=== PATIENT | female | born 1980 | race Hispanic/Latino ===

== ENCOUNTER 2016-09-26 08:06 | Observation (INO) | payer OTHER ==
[~2016-09-26] VITALS: Ht 167.6 cm; Wt 95.3 kg
[~2016-09-26 08:06] MED LIST: LEVSIN/SL0.125 MG SL; MIRENA1 EACH; TRAMADOL50 MG PO; ZOFRAN4 M1 SL
--- NOTE | 2016-09-26 08:13 | ED GI/GU/ABDOMINAL COMPLAINT ---
History of Present Illness General Chief Complaint: Abdominal Pain/Flank Pain Stated Complaint: LOWER ABD PAIN SINCE LAST PM Source: patient, old records Exam Limitations: no limitations Vital Signs & Intake/Output Vital Signs & Intake/Output Vital Signs Date Time Temp Pulse Resp B/P Pulse O2 O2 Flow FiO2 Ox Delivery Rate 09/27 0110 97.4 61 18 142/84 96 Room Air 09/26 1956 97.0 68 17 138/90 97 Room Air 09/26 1545 98.3 68 18 112/84 100 09/26 1345 97.8 68 18 132/80 100 Room Air 09/26 1301 97.0 66 15 126/86 100 Room Air Room Air 09/26 1050 96.9 64 16 149/82 100 Room Air 09/26 0902 124/86 09/26 0830 Room Air Room Air 09/26 0808 97.2 83 20 152/100 98 Room Air ED Intake and Output 09/27 0000 09/26 1200 Intake Total 200 1000 Output Total 600 Balance -400 1000 Intake, IV 200 1000 Output, Urine 600 Patient 210 lb 210 lb Weight Allergies Coded Allergies: NO KNOWN ALLERGIES (06/10/15) Reconcile Medications Levonorgestrel (Mirena) 20 MCG/24 HOUR (5 YEARS) IUD BC (Reported) Triage Note: PT TO ED C/O LOWER ABD PAIN SINCE YESTERDAY. PAIN RADIATES TO BACK. DENIES S/S. THIS AM C/O NAUSEA. DENIES V/D. DESCRIBES PAIN CONSTANT BURN. Triage Nurses Notes Reviewed? yes LMP (ages 10-50): unknown ? N Is pt currently ? No Onset: Abrupt Duration: day(s): (2), constant, waxing and waning Timing: recent history Quality/Severity: aching, cramping Severity Numbers: 6 Location: generalized abdomen Radiation: RLQ, RUQ Activities at Onset: none Prior Abdominal Problems: none No Modifying Factors: none Associated Symptoms: NAUSEA, URINARY FREQ HPI: This is a 36-year-old female with history of cholecystectomy presents to emergency room complaining of generalized abdominal pain intermittent in nature sudden in onset was last night. The patient states that she initially attributed the pain to holding her bladder all day however states she's had urinary frequency since, and nausea this morning. No vomiting no change in her bowel movements. She states the pain is described as cramping in nature radiating into her lower back. She denies any fever chills chest pain. No sick contacts or recent travel. Patient is unsure of her last menstrual cycle, and has a mirena in place. Patient's last bowel movement was this morning (MARCELO KAY) Past History Travel History Traveled to [place] past 21 day No Medical History Any Pertinent Medical History? 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 No (MARCELO KAY) Review of Systems Review of Systems Constitutional: Reports: see HPI. All Other Systems: Reviewed and Negative Comments Review of systems: See HPI, All other systems negative. Constitutional, no chills no fever, no malaise HEENT: No visual changes no sore throat no congestion Cardiovascular: No chest pain , no palpitation Skin, no rashes, no change in skin Respiratory: No dyspnea no cough no sputum GI: nausea no vomiting, no diarrhea, no bloating/constipation : No dysuria No hematuria, frequency, no discharge Muscle skeletal: No joint pain, no joint swelling, no back pain, no neck pain, Neurologic: No numbness no headache Psych: No stress Heme/endocrine: No bruising no bleeding Immunology: No lymphadenopathy, (MARCELO KAY) Physical Exam Physical Exam General Appearance: well developed/nourished, no apparent distress, alert, awake Gastrointestinal: soft, tenderness Comments: Well-developed well-nourished person in no acute distress HEENT: Normal EENT exam; PERRL, EOMI HEAD is atraumatic. moist mucous membranes. Neck: Supple, normal range of motion Back: Nontender, no CVA tenderness. Full range of motion Cardiovascular: Regular rate and rhythms no murmurs rubs Respiratory: Chest nontender.There were no bony deformities, no asymmetry. No respiratory distress. Patient speaking in full complete sentences. Breath sounds clear to auscultation bilaterally: NO W/R/R Abdomen: Soft, tender to palpation over the right lower quadrant nondistended, no appreciable organomegaly. Normal bowel sounds. No rebound/guarding, Extremity: No edema, full range of motion of extremities, Neuro: Alert oriented x3, motor sensory normal. There were no obvious focal neurologic abnormalities. Skin: No appreciable rash on exposed skin, skin is warm and dry. Psych: Mood and affect is normal, memory and judgment is normal. Core Measures ACS in differential dx? No Severe Sepsis Present: No Septic Shock Present: No (CAROL PATRICIO,MARCELO) Progress Differential Diagnosis: appendicitis, bowel obstruction, colon cancer, cholecystitis, diverticulitis, ectopic , gastritis, hepatitis, hernia, ischemic bowel, inflamm bowel dis, intrauterine , kidney stone, ovarian cyst, ovarian torsion, pancreatitis, PID/cervicitis, peptic ulcer, PUD/GERD, perforated viscous, SBO, threatened AB, UTI/pyelo Plan of Care: Orders Procedure Date/time Status Nothing by Mouth 09/26 L Complete Regular Diet 09/26 D Active TRANSFER ORDERS 09/26 1759 Complete PATHOLOGY SPECIMEN 09/26 1749 Complete Vital Signs 09/26 1604 Active Teach/Educate 09/26 1604 Complete Nutritional Intake, Monitor 09/26 1604 Complete Isolation 09/26 1604 Complete Intake & Output 09/26 1604 Active Patient Care Conference 09/26 1604 Complete Activity/Ambulation 09/26 1604 Active Pathway - chart 09/26 1041 Active Patient Data 09/26 1041 Active Code Status 09/26 1041 Active Saline Lock 09/26 0820 Active URINE 09/26 0820 Complete URINALYSIS 09/26 0820 Complete LIPASE 09/26 0820 Complete COMPREHENSIVE METABOLIC PANEL 09/26 0820 Complete CBC WITHOUT DIFFERENTIAL 09/26 0820 Complete AMYLASE 09/[address] in observation 09/26 UNK Active VTE Mechanical Prophylaxis 09/26 UNK Complete VTE Mechanical Prophylaxis 09/26 UNK Active Vital Signs 09/26 UNK Complete Vital Signs 09/26 UNK Active Intake & Output 09/26 UNK Complete Intake & Output 09/26 UNK Active Activity/Ambulation 09/26 UNK Complete Activity/Ambulation 09/26 UNK Active Current Medications Sig/Belia Start time Last Medication Dose Stop Time Status Admin Heparin Sodium 5,000 UNIT Q8 09/26 2200 AC (Porcine) Acetaminophen 650 MG Q6PRN PRN 09/26 1930 AC (Tylenol) Morphine Sulfate 4 MG Q3P PRN 09/26 1929 AC (Morphine) Ondansetron HCl 4 MG Q8P PRN 09/26 1929 AC (Zofran) Oxycodone/ 2 TAB Q4P PRN 09/26 1929 AC Acetaminophen (Percocet) Laboratory Tests 09/26/1625: Anion Gap 11, Estimated GFR > 60, BUN/Creatinine Ratio 17.5, Glucose 94, Calcium 9.5, Total Bilirubin 0.7, AST 26, ALT 40, Alkaline Phosphatase 70, Total Protein 7.5, Albumin 4.3, Globulin 3.2, Albumin/Globulin Ratio 1.3, Amylase 39, Lipase 54, CBC w Diff NO MAN DIFF REQ, RBC 4.83, MCV 81.8, MCH 26.9 L, RDW 14.2, MPV 9.9, Gran % 70.2, Lymphocytes % 22.5, Monocytes % 5.3, Eosinophils % 1.5, Basophils % 0.5, Absolute Granulocytes 5.9, Absolute Lymphocytes 1.9, Absolute Monocytes 0.4, Absolute Eosinophils 0.1, Absolute Basophils 0, PUBS MCHC 32.9 L 09/26/1623: Urine Color YEL, Urine Clarity CLEAR, Urine pH 7.0, Ur Specific [place] 1.010, Urine Protein NEG, Urine Ketones NEG, Urine Nitrite NEG, Urine Bilirubin NEG, Urine Urobilinogen 0.2, Ur Leukocyte Esterase NEG, Ur Microscopic SEDIMENT EXAMINED, Urine RBC RARE, Urine WBC RARE, Ur Epithelial Cells FEW, Urine Hemoglobin TRACE-INTACT, Urine Glucose NEG, Urine Test NEGATIVE labs ordered, toradol 30mg iv, ivns ct ordered 09/26/2016 9:29:08 AM discussed with the patient her lab results patient was comfortable, SHE reports improvement in symptoms with Toradol. pending ct 1015 CASE D/W DR BURGOS WILL HAVE SURGICAL PA EVAL PT 09/26/2016 10:37:52 AM surgical PA at bedside (CAROL PATRICIO,MARCELO) Diagnostic Imaging: Viewed by Me: CT Scan. Discussed w/RAD: CT Scan. Radiology Impression: PATIENT: OLIVIA MICHELLE PRESENT AGE: 36 PATIENT ACCOUNT NO: [id number] : 79 LOCATION: [facility] ORDERING PHYSICIAN: MARCELO PATRICIO SERVICE DATE: 09/26/16 EXAM TYPE: CAT - CT ABD & PELVIS W IV CONTRAST EXAMINATION: CT ABDOMEN AND PELVIS WITH CONTRAST CLINICAL INFORMATION: Right lower quadrant abdominal pain. COMPARISON: None TECHNIQUE: Multidetector volumetric imaging was performed of the abdomen and pelvis before and after the IV administration of 95 mL of Optiray 320 intravenous contrast. Sagittal and coronal reformatted images were obtained on the technologist's workstation. DLP: 601 mGy-cm FINDINGS: LUNG BASES: The visualized lung bases are unremarkable. LIVER, GALLBLADDER, AND BILIARY TREE: The liver is normal in size, shape, and attenuation. No focal hepatic lesion or biliary ductal dilatation is present. Gallbladder is surgically absent. PANCREAS : Unremarkable. SPLEEN: Unremarkable. ADRENAL GLANDS: Unremarkable. KIDNEYS AND URETERS: The kidneys are normal in size, shape, and attenuation. No hydronephrosis, hydroureter, or calculi seen. No perinephric stranding. BLADDER: Unremarkable. GASTROINTESTINAL TRACT: The appendix is dilated to 1.6 cm in diameter with mucosal hyperemia and surrounding fat stranding, consistent with acute appendicitis. No surrounding fluid collections or pneumoperitoneum to indicate complication such as perforation or abscess. The stomach, small bowel, and colon are otherwise normal in appearance without additional areas of inflammation. No evidence of obstruction. No intraperitoneal free fluid. ABDOMINAL WALL: Small fat-containing hernia and a small fat-containing supraumbilical hernia are present. No bowel involvement. LYMPH NODES: Normal. VASCULAR: Unremarkable. PELVIC VISCERA: IUD is present within the retroverted uterus. Ovaries are unremarkable. OSSEOUS STRUCTURES: No acute osseous abnormalities. Minimal degenerative changes are present in the SI joints. IMPRESSION: 1. Acute uncomplicated appendicitis. 2. Small fat-containing umbilical and periumbilical hernias. This critical result was discussed by telephone with Marcelo Aviles PA-C at 10:03 AM on 09/26/2016 . DICTATED BY: LUIS ALFREDO GARZA MD DATE/TIME DICTATED:09/26/16958 COP:TONG DATE/TIME TRANSCRIBED:09/26/16958 CONFIDENTIAL, DO NOT COPY WITHOUT APPROPRIATE AUTHORIZATION. <Electronically signed in Other Vendor System> SIGNED BY: LUIS ALFREDO GARZA MD 09/26/16 1009 Initial ED EKG: none (MARCELO KAY) Departure Departure Time of Disposition: 1023 Disposition: STILL A PATIENT Condition: Stable Clinical Impression Primary Impression: Appendicitis Referrals: HARLAN MARTINEZ,COLETTE Dunham (PCP/Family) Departure Forms: Customer Survey General Discharge Information Observation Note Spoke With: JUDE GRIDER DO Place Patient In: Non-ED OBS Care Area Rationale for Observation: My rational for observation is as follows SURIGCAL- LAP APPY, NO OR AVAILABLE AT THIS TIME. OR/GI Note Spoke With: JUDE GRIDER DO ED Treatment Decision: OLIVIA MICHELLE requires urgent operative management or an emergent procedure that cannot be performed in the Emergency Room setting. Transport To: [facility] (MARCELO KAY) PA/NEONATAL DOCTOR Co-Sign Statement Statement: ED Attending supervision documentation- [] I saw and evaluated the patient. I have also reviewed all the pertinent lab results and diagnostic results. I agree with the findings and the plan of care as documented in the PA's/NEONATAL DOCTOR's documentation. [X] I have reviewed the ED Record and agree with the PA's/NEONATAL DOCTOR's documentation. [] Additions or exceptions (if any) to the PAs/NEONATAL DOCTOR's note and plan are summarized below: [] (EVA MARTINEZ,KENNA Lerner)
--- NOTE | 2016-09-26 08:26 | NUR ---
URINE TRIO SENT TO LAB.
--- NOTE | 2016-09-26 08:29 | NUR ---
IV ESTABLISHED. BLOOD WORK DRAWN AND SENT TO LAB NOW: SST, LAV, BLUE, MARTINEZ AND PINK TOPS. PT MEDICATED WITH TORADOL AND LITER OF NS BOLUS.
[2016-09-26 08:43] LABS: ABSOLUTE BASOPHIL COUNT 0 /CUMM (0.0-0.2); ABSOLUTE EOSINOPHIL COUNT 0.1 /CUMM (0.0-0.7); ABSOLUTE GRANULOCYTE CT 5.9 /CUMM (1.4-6.5); ABSOLUTE LYMPH COUNT 1.9 /CUMM (1.2-3.4); ABSOLUTE MONOCYTE COUNT 0.4 /CUMM (0.10-0.60); BASOPHIL % 0.5 % (0.0-2.0); EOSINOPHIL % 1.5 % (0-5); GRANULOCYTE % 70.2 % (42.2-75.2); HEMATOCRIT 39.5 % (37-47); MEAN CORPUSCULAR HGB 26.9 PG (27.0-31.0); MEAN CORPUSCULAR HGB CONC 32.9 G/DL (33.0-37.0); MEAN CORPUSCULAR VOLUME 81.8 FL (81.0-99.0); MEAN PLATELET VOLUME 9.9 FL (7.4-10.4); PLATELET COUNT 221 /CUMM (130-400); RBC DISTRIBUTION WIDTH 14.2 % (11.5-14.5); RED BLOOD CELL CT 4.83 /CUMM (4.20-5.40); WHITE BLOOD CELL COUNT 8.4 /CUMM (4.8-10.8)
--- NOTE | 2016-09-26 08:57 | NUR ---
PT REPORTS SOME RELIEF FROM TORADOL, WOULD NOT LIKE ANYTHING STRONGER FOR PAIN AT THIS TIME.
--- NOTE | 2016-09-26 10:09 | CT SCAN REPORT ---
EXAMINATION: CT ABDOMEN AND PELVIS WITH CONTRAST CLINICAL INFORMATION: Right lower quadrant abdominal pain. COMPARISON: None TECHNIQUE: Multidetector volumetric imaging was performed of the abdomen and pelvis before and after the IV administration of 95 mL of Optiray 320 intravenous contrast. Sagittal and coronal reformatted images were obtained on the technologist's workstation. DLP: 601 mGy-cm FINDINGS: LUNG BASES: The visualized lung bases are unremarkable. LIVER, GALLBLADDER, AND BILIARY TREE: The liver is normal in size, shape, and attenuation. No focal hepatic lesion or biliary ductal dilatation is present. Gallbladder is surgically absent. PANCREAS: Unremarkable. SPLEEN: Unremarkable. ADRENAL GLANDS: Unremarkable. KIDNEYS AND URETERS: The kidneys are normal in size, shape, and attenuation. No hydronephrosis, hydroureter, or calculi seen. No perinephric stranding. BLADDER: Unremarkable. GASTROINTESTINAL TRACT: The appendix is dilated to 1.6 cm in diameter with mucosal hyperemia and surrounding fat stranding, consistent with acute appendicitis. No surrounding fluid collections or pneumoperitoneum to indicate complication such as perforation or abscess. The stomach, small bowel, and colon are otherwise normal in appearance without additional areas of inflammation. No evidence of obstruction. No intraperitoneal free fluid. ABDOMINAL WALL: Small fat-containing hernia and a small fat-containing supraumbilical hernia are present. No bowel involvement. LYMPH NODES: Normal. VASCULAR: Unremarkable. PELVIC VISCERA: IUD is present within the retroverted uterus. Ovaries are unremarkable. OSSEOUS STRUCTURES: No acute osseous abnormalities. Minimal degenerative changes are present in the SI joints. IMPRESSION: 1. Acute uncomplicated appendicitis. 2. Small fat-containing umbilical and periumbilical hernias. This critical result was discussed by telephone with Lázaro Aviles PA-C at 10:03 AM on 09/26/2016 .
--- NOTE | 2016-09-26 10:30 | NUR ---
SURGICAL PA AT BEDSIDE.
--- NOTE | 2016-09-26 10:51 | History & Physical ---
BANG SCHILLING 09/26/16 1044: General Information and HPI Source of Information: patient Exam Limitations: no limitations History of Present Illness: 36yo F with 1 day history of abdominal pain. Patient states she had RLQ pain which started yesterday around 16:30-17:00 and gradually increased in severity. She also states she had some nausea and dry heaves this morning as well. She has been passing flatus and having normal bowel movements up to this point. She denies fevers. No recent illnesses. Denies CP/SOB. 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 Denies: chills, fever. Cardiovascular: Denies: chest pain, palpitations. Respiratory: Denies: cough, short of breath, sputum production. GI: Reports: see HPI. Genitourinary: Denies: dysuria, frequency. Musculoskeletal: Reports: no symptoms. Skin: Reports: no symptoms. Exam & Diagnostic Data Last 24 Hrs of Vital Signs/I&O Vital Signs Date Time Temp Pulse Resp B/P Pulse O2 O2 Flow FiO2 Ox Delivery Rate 09/26 0902 124/86 09/26 0830 Room Air Room Air 09/26 0808 97.2 83 20 152/100 98 Room Air Intake & Output 09/26 1600 09/26 0800 09/26 0000 Intake Total 1000 Output Total Balance 1000 Intake, IV 1000 Patient 210 lb Weight Physical Exam General Appearance Alert, Oriented X3, Cooperative, No Acute Distress Skin No Rashes, No Significant Lesion HEENT Atraumatic, EOMI, Mucous Membr. moist/pink Neck Supple, No JVD Cardiovascular Regular Rate Lungs Clear to Auscultation, Normal Air Movement Abdomen Soft, Non distended. +TTP over McBurney's point. No guarding. Neurological Normal Speech, Cranial Nerves 3-12 NL Extremities No Clubbing, No Edema Vascular Normal Pulses, Pulses Symmetrical Last 24 Hrs of Labs/Syd: Laboratory Tests 09/26/16 0825: Anion Gap 11, Estimated GFR > 60, BUN/Creatinine Ratio 17.5, Glucose 94, Calcium 9.5, Total Bilirubin 0.7, AST 26, ALT 40, Alkaline Phosphatase 70, Total Protein 7.5, Albumin 4.3, Globulin 3.2, Albumin/Globulin Ratio 1.3, Amylase 39, Lipase 54, CBC w Diff NO MAN DIFF REQ, RBC 4.83, MCV 81.8, MCH 26.9 L, RDW 14.2, MPV 9.9, Gran % 70.2, Lymphocytes % 22.5, Monocytes % 5.3, Eosinophils % 1.5, Basophils % 0.5, Absolute Granulocytes 5.9, Absolute Lymphocytes 1.9, Absolute Monocytes 0.4, Absolute Eosinophils 0.1, Absolute Basophils 0, PUBS MCHC 32.9 L 09/26/16 0823: Urine Color YEL, Urine Clarity CLEAR, Urine pH 7.0, Ur Specific [place] 1.010, Urine Protein NEG, Urine Ketones NEG, Urine Nitrite NEG, Urine Bilirubin NEG, Urine Urobilinogen 0.2, Ur Leukocyte Esterase NEG, Ur Microscopic SEDIMENT EXAMINED, Urine RBC RARE, Urine WBC RARE, Ur Epithelial Cells FEW, Urine Hemoglobin TRACE-INTACT, Urine Glucose NEG, Urine Test NEGATIVE Diagnostic Data Other Results EXAM TYPE: CAT - CT ABD & PELVIS W IV CONTRAST EXAMINATION: CT ABDOMEN AND PELVIS WITH CONTRAST CLINICAL INFORMATION: Right lower quadrant abdominal pain. COMPARISON: None TECHNIQUE: Multidetector volumetric imaging was performed of the abdomen and pelvis before and after the IV administration of 95 mL of Optiray 320 intravenous contrast. Sagittal and coronal reformatted images were obtained on the technologist's workstation. DLP: 601 mGy-cm FINDINGS: LUNG BASES: The visualized lung bases are unremarkable. LIVER, GALLBLADDER, AND BILIARY TREE: The liver is normal in size, shape, and attenuation. No focal hepatic lesion or biliary ductal dilatation is present. Gallbladder is surgically absent. PANCREAS: Unremarkable. SPLEEN: Unremarkable. ADRENAL GLANDS: Unremarkable. KIDNEYS AND URETERS: The kidneys are normal in size, shape, and attenuation. No hydronephrosis, hydroureter, or calculi seen. No perinephric stranding. BLADDER: Unremarkable. GASTROINTESTINAL TRACT: The appendix is dilated to 1.6 cm in diameter with mucosal hyperemia and surrounding fat stranding, consistent with acute appendicitis. No surrounding fluid collections or pneumoperitoneum to indicate complication such as perforation or abscess. The stomach, small bowel, and colon are otherwise normal in appearance without additional areas of inflammation. No evidence of obstruction. No intraperitoneal free fluid. ABDOMINAL WALL: Small fat-containing hernia and a small fat-containing supraumbilical hernia are present. No bowel involvement. LYMPH NODES: Normal. VASCULAR: Unremarkable. PELVIC VISCERA: IUD is present within the retroverted uterus. Ovaries are unremarkable. OSSEOUS STRUCTURES: No acute osseous abnormalities. Minimal degenerative changes are present in the SI joints. IMPRESSION: 1. Acute uncomplicated appendicitis. 2. Small fat-containing umbilical and periumbilical hernias. Assessment/Plan Assessment: 36yo F with acute appendicitis. AVSS, stable. - NPO - Place in observation, floor - Pain control - IV unasyn - I/O's - OR today for laparoscopic vs open appendectomy - SC heparin and ALPS for DVT PPx - IVF - PRN zofran - Will d/w attending As Ranked By This Provider Problem List: 1. Appendicitis Core Measures/Miscellaneous Acute Coronary Syndrome ACS Diagnosis: No Cerebrovascular Accident CVA/TIA Diagnosis: No Congestive Heart Failure CHF Diagnosis: No Venous Thromboembolism VTE Risk Factors: Acute medical illness, Age > 40, Obesity VTE Prophylaxis Ordered Inpt: Mech & Pharm No Mech VTE prophylaxis d/t: No contraindications No VTE Pharm Prophylaxis d/t: No contraindications VTE Diagnosis: No VTE Type: NONE VTE Confirmed by (Test): NONE Severe Sepsis Severe Sepsis Present: No Septic Shock Septic Shock Present: No Miscellaneous Documentation Attending Case Discussed With: Dr. Carlson Primary Care Physician: HARLAN MARTINEZ,COLETTE Dunham Patient sees these Specialists Unknown Level of Patient Care: General Medicine CHEO MANNINGJUDE 09/26/16 1807: Attending MD Review Statement Attending Statement Attending MD Statement: examined this patient, discuss w/resident/PA/GEARMAN, agreed w/resident/PA/GEARMAN, reviewed images Attending Assessment/Plan: Patient seen and examined, agree with above. Abdominal pain since last night in RLQ. CT scan + appendicitis. ROS is all negative aside for the above mentioned pertinent positives. Abd-soft. Will admit for IV Abx, NPO/IVF, and plan for a Lap Appy today. Discussed with patient and ED staff.
--- NOTE | 2016-09-26 11:20 | NUR ---
PT AMBULATED TO BATHROOM.
--- NOTE | 2016-09-26 11:42 | NUR ---
FLAGYL 500 MG INFUSING
--- NOTE | 2016-09-26 12:58 | NUR ---
PT INFORMED WAITING BED ASSIGNMENT.
--- NOTE | 2016-09-26 13:18 | NUR ---
REPORT GIVEN TO MERCED ELLIOTT.
[2016-09-26 13:45] VITALS: BP 132/80
[2016-09-26 15:45] VITALS: BP 112/84
--- NOTE | 2016-09-26 18:07 | Operative Report ---
Operative/Inv Procedure Report Surgery Date: 09/26/16 Name of Procedure: Laparoscopic Appendectomy Pre-Operative Diagnosis: Acute Appendicitis Post-Operative Diagnosis: Same Estimated Blood Loss: less than 50ml Surgeon/Wall Covering Contractor: JUDE GRIDER DO Anesthesia: general endotracheal tube IV Fluids: 1000 cc Drains: None Specimens: Appendix Complications: None Condition: Stable Operative Indication: This is a 36-year-old female that presented to the emergency room with abdominal pain. After appropriate workup was completed the patient was diagnosed with acute appendicitis. A laparoscopic appendectomy was discussed in detail. All risks including but not limited to bleeding, infection, and injury to surrounding bowel were discussed in detail. The patient understood everything and decided to proceed. Operative/Procedure Note Note: The patient was brought to the operating room and placed on the table in supine position. Venodyne stockings were placed and adequate general endotracheal anesthesia was obtained. The patient was prepped and draped in standard surgical fashion. Began the procedure by making a 2 cm transverse incision in the infraumbilical crease. Incision was carried down to the fascia. Once the fascia was clearly visualized it was picked up between 2 Sofi clamps and divided in the midline. Once we entered the peritoneum 2 stay Vicryl sutures were placed on each side and a 12 mm blunt port was inserted. The abdominal cavity was insufflated to 15 mmHg. And a 10 mm 30 laparoscope was introduced. Upon initial examination no obvious gross pathology was seen. Accessory trocars were placed, both 5 mm, one in the left lower quadrant and one suprapubic. Ascending colon was identified and traced proximally, terminal ileum was identified, and we did note the appendix coursing in a retrocecal fashion. The base of the appendix was identified and appeared healthy. Distal appendix was inflamed and thickened and adhered to the sidewall and to the omentum. Using blunt dissection and harmonic scalpel the appendix was carefully dissected away from surrounding structures. Once the appendix was away from the omentum and the sidewall the mesoappendix was divided using Harmonic scalpel maintaining hemostasis until the appendiceal base was clearly visualized and freely up in the air. At that point we switched to a 5 mm laparoscope and a 45 mm rubin Endo ARSEN load was inserted and the base was transected. The appendix was placed in an Endobag and removed through the umbilical trocar site. The abdominal cavity was reinsufflated and we switched back to a 10 mm laparoscope. Staple line was examined and some bleeding was noted, that was controlled using endoclips. No other abnormalities were noted. No purulent fluid was noted in the pelvis. All ports were removed under direct visualization, no obvious bleeding was noted. The umbilical trocar site was closed using 0 Vicryl suture. The skin was closed using 4-0 Monocryl. Steri-Strips and dressings were placed. The patient was successfully extubated and transferred to the recovery room in stable condition. The patient tolerated procedure well with no complications. Findings: Dilated/thickened distal appendix CC: HARLAN MARTINEZ,COLETTE Dunham
[2016-09-26 19:56] VITALS: BP 138/90
--- NOTE | 2016-09-26 20:01 | NUR ---
PT ARRIVED FROM PACU VIA STRETCHER, FAMILY AT BEDSIDE. A&OX3, VSS, NO C/O PAIN AT THIS TIME. WILL MONITOR.
--- NOTE | 2016-09-26 22:01 | PN- General Surgery ---
Subjective Subjective: poc s/p lap appy no complaints at this time denies cp, sob, no n+v with diet Objective Vital Signs and I&Os Vital Signs Date Time Temp Pulse Resp B/P Pulse O2 O2 Flow FiO2 Ox Delivery Rate 09/26 1955 97.0 68 17 138/90 97 Room Air 09/26 1545 98.3 68 18 112/84 100 09/26 1345 97.8 68 18 132/80 100 Room Air 09/26 1301 97.0 66 15 126/86 100 Room Air Room Air 09/26 1050 96.9 64 16 149/82 100 Room Air 09/26 0902 124/86 09/26 0830 Room Air Room Air 09/26 0808 97.2 83 20 152/100 98 Room Air Intake & Output 09/26 1600 09/26 0800 09/26 0000 09/25 1600 09/25 0800 09/25 0000 Intake Total 1000 Output Total Balance 1000 Intake, IV 1000 Patient 210 lb Weight Physical Exam: cv: rrr lungs: clear abd: soft, +bs drsg dry ext: warm, distal lcms intact Assessment/Plan Assessment/Plan surgical stable plan advance diet titrate pain meds plan for home d/c in am Core Measures/Miscellaneous Venous Thromboembolism VTE Risk Factors: Age > 40, Obesity, Surgery VTE Contraindications: No Contraindications VTE Prophylaxis Ordered Inpt Mech & Pharm VTE Diagnosis: No VTE Type: NONE VTE Confirmed by (Test): NONE Beta James Is Beta James a Home Med? No Antibiotics Is Patient on Antibiotics? No
[2016-09-27 01:10] VITALS: BP 142/84
--- NOTE | 2016-09-27 07:33 | PN- General Surgery ---
Subjective Subjective: The patient seen this morning postoperatively day #1. She reports feeling a little sore but otherwise her pain is under adequate control. She is tolerating a regular diet without nausea and is eager to go home today. Objective Vital Signs and I&Os Vital Signs Date Time Temp Pulse Resp B/P Pulse O2 O2 Flow FiO2 Ox Delivery Rate 09/27 0110 97.4 61 18 142/84 96 Room Air 09/26 1956 97.0 68 17 138/90 97 Room Air 09/26 1545 98.3 68 18 112/84 100 09/26 1345 97.8 68 18 132/80 100 Room Air 09/26 1301 97.0 66 15 126/86 100 Room Air Room Air 09/26 1050 96.9 64 16 149/82 100 Room Air 09/26 0902 124/86 09/26 0830 Room Air Room Air 09/26 0808 97.2 83 20 152/100 98 Room Air Intake & Output 09/27 0800 09/27 0000 09/26 1600 09/26 0800 09/26 0000 09/25 1600 Intake Total 231 772 9808 Output Total 700 600 Balance 100 -400 1000 Intake, IV 237 407 8477 Output, Urine 700 600 Patient 210 lb Weight Physical Exam: Gen.: Alert and in no obvious distress Skin: Warm and dry Abdomen: Soft, appropriate incisional tenderness, bowel sounds positive. Port sites are clean, dry, and intact. Extremities: Bilateral lower extremities are warm without calf tenderness or significant edema. Assessment/Plan Assessment/Plan Assessment: 36 old female status post laparoscopic appendectomy. Postoperatively patient is progressing as expected and her pain is under adequate control. She is tolerating a regular diet without nausea. Plan: Hep-Lock IV fluids Continue regular diet GI and DVT prophylaxis Discharge home Core Measures/Miscellaneous Venous Thromboembolism VTE Risk Factors: Age > 40, Obesity, Surgery VTE Contraindications: No Contraindications VTE Prophylaxis Ordered Inpt Mech & Pharm VTE Diagnosis: No VTE Type: NONE VTE Confirmed by (Test): NONE Beta James Is Beta James a Home Med? No Antibiotics Is Patient on Antibiotics? No
[2016-09-27] MEDS ORDERED: PERCOCET 5-3251 EACH PO (07:35)
--- NOTE | 2016-09-27 07:35 | Surg Short-stay <48hrs Dis Sum ---
Visit Information Visit Dates Admission Date: 09/26/16 Discharge Date: 09/27/16 Surgical Short Stay DC Summary Admission Diagnosis: Acute appendicitis Final Diagnosis: Same Procedure(s): Laparoscopic appendectomy Summary/Significant Findings: The patient was admitted on 09/26/2016. She was brought to the operating theater where she underwent a laparoscopic appendectomy. Postoperative the patient progressed as expected, her pain is under adequate control, and she tolerated a regular diet without nausea. The patient was discharged with an uneventful hospital course. Condition at Discharge: Stable Discharge Disposition: home or self care Discharge instructions provided to patient/family: Yes Post discharge follow-up plan: Call the office to be seen in 2 weeks
--- NOTE | 2016-09-27 07:39 | Patient Discharge Instructions ---
Discharge Instructions General Discharge Information You were seen/treated for: Appendicitis You had these procedures: Laparoscopic appendectomy Watch for these problems: Significantly increased pain, temperatures over 101, vomiting, redness or drainage from around the incisions No bath, but you may shower: Yes Other wound care: Remove dressings in 24 hours leaving white strips on until seen by surgeon. Diet Continue normal diet: Yes Activity Activity Self Limited: Yes Pounds, do NOT lift more than: 10 Other activity limits: No operating heavy machinery or driving a vehicle until seen by your doctor Acute Coronary Syndrome Inclusion Criteria At DC or during hospital stay patient has or had the following: ACS DIAGNOSIS No Discharge Core Measures Meds if any: Prescribed or Continued at Discharge Meds if any: NOT Prescribed or Continued at Discharge Congestive Heart Failure Inclusion Criteria At DC or during hospital stay patient has or had the following: CHF DIAGNOSIS No Discharge Core Measures Meds if any: Prescribed or Continued at Discharge Meds if any: NOT Prescribed or Continued at Discharge Cerebrovascular accident Inclusion Criteria At DC or during hospital stay patient has or had the following: CVA/TIA Diagnosis No Discharge Core Measures Meds if any: Prescribed or Continued at Discharge Meds if any: NOT Prescribed or Continued at Discharge Venous thromboembolism Inclusion Criteria VTE Diagnosis No VTE Type NONE VTE Confirmed by (Test) NONE Discharge Core Measures - Per Current guidelines, there needs to be overlap - treatment for the first 5 days of Warfarin therapy. - If discharged on Warfarin prior to 5 days of - overlap therapy, the patient will need to be - assessed for post discharge needs including - *Post discharge parental anticoagulation - *Warfarin and/or parental anticoagulation education - *Follow up date to check INR post discharge At least 5 days overlap therapy as Inpatient No Meds if any: Prescribed or Continued at Discharge Note: Overlap Therapy is Warfarin and Anticoagulant Meds if any: NOT Prescribed or Continued at Discharge
[2016-09-27 08:47] VITALS: BP 156/98
== END 2016-09-27 12:40 ==
LOC: ENRESERVTM → ENRESERVDT → ERH 08:06 → ENPENDDIS 10:41 → ERHI 10:41 → 2NB 13:48
PROVIDERS: Physician Assistant Medical; ADMIT Surgery
DX: K35.89 Other acute appendicitis (principal)
CPT/HCPCS: 6040; 74177; 81001; 81025; 88304; 96361; 96374; 96375; G0378; J0131; J0690; J1644; J1885; J2405; J7042

== ENCOUNTER 2016-12-18 16:12 | Emergency (ER) | payer OTHER ==
[~2016-12-18] VITALS: Ht 167.6 cm; Wt 95.3 kg
[~2016-12-18 16:12] MED LIST changes: +PERCOCET 5-3251 EACH PO
[2016-12-18 16:44] VITALS: BP 154/98
--- NOTE | 2016-12-18 17:48 | ED EAR COMPLAINT ---
History of Present Illness General Chief Complaint: Ear Complaints Stated Complaint: LEFT EAR INFECTION Source: patient Exam Limitations: no limitations Vital Signs & Intake/Output Vital Signs & Intake/Output ED Intake and Output 12/19 0000 12/18 1200 Intake Total Output Total Balance Patient 210 lb Weight Weight Reported by Patient Measurement Method Allergies Coded Allergies: No Known Allergies (12/18/16) Reconcile Medications Amoxicillin/Potassium Clav (Augmentin 875-125 Tablet) 875 MG-125 MG TABLET 1 TAB PO BID OTITIS MEDIA Hydrocodone/Acetaminophen (Hydrocodon-Acetaminophen 5-325) 5 MG-325 MG TABLET 1-2 TAB PO Q4-6 PRN PRN PAIN Levonorgestrel (Mirena) 20 MCG/24 HOUR (5 YEARS) IUD BC (Reported) Oxycodone HCl/Acetaminophen (Percocet 5-325 MG Tablet) 5 MG-325 MG TABLET 1-2 TAB PO Q4-6P PRN PAIN Triage Note: PT TO ED FOR L EAR PAIN THAT STARTED YESTERDAY, SEEN AT WALK-IN CLINIC AND TREATED FOR SWIMMERS EAR AND GIVEN CIRPRODEX DROPS. TODAY THE PAIN IS WORSE AND INCREASED SWELLING TO EAR AND FACE/JAW AREA. DENIES FEVER OR CHILLS. TOOK MOTRIN A COUPLE HOURS AGO WITH SOME RELIEF. Triage Nurses Notes Reviewed? yes Onset: Abrupt Duration: day(s): (few), constant, continues in ED Timing: recent history Injury Environment: home Severity: moderate, severe No Modifying Factors: none : No Patient currently breastfeeds: No HPI: 36-year-old female comes into emergency room for further evaluation of left ear pain. Patient was seen at the walk-in clinic yesterday and given ear drops reports that the pain has increased. Sharp. Throbbing. Denies fever chills. Denies any trauma to the ear. Denies any other associated symptoms. (FER PRICE) Past History Travel History Traveled to [place] past 21 day No Medical History Any Pertinent Medical History? see below for history Neurological: NONE EENT: NONE Cardiovascular: NONE Respiratory: NONE Gastrointestinal: NONE Hepatic: NONE Renal: NONE Musculoskeletal: NONE Psychiatric: NONE Endocrine: NONE Blood Disorders: NONE Cancer(s): NONE EMS EDUCATOR/Reproductive: NONE History of MRSA: No History of VRE: No History of CDIFF: No Influenza Vaccine: 04/30/16 Surgical History Surgical History: cholecystectomy, Psychosocial History What is your primary language Stateless Tobacco Use: Current Not Daily Daily Tobacco Use Amount/Type: =< 4 Cigarettes daily ETOH Use: occasional use Illicit Drug Use: denies illicit drug use Family History Hx Contributory? No (FER PRICE) Review of Systems Review of Systems Constitutional: Reports: no symptoms. EENTM: Reports: see HPI. Respiratory: Reports: no symptoms. Cardiovascular: Reports: no symptoms. GI: Reports: no symptoms. Genitourinary: Reports: no symptoms. Musculoskeletal: Reports: no symptoms. Skin: Reports: no symptoms. Neurological/Psychological: Reports: no symptoms. Hematologic/Endocrine: Reports: no symptoms. Immunologic/Allergic: Reports: no symptoms. All Other Systems: Reviewed and Negative (FER PRICE) Physical Exam Physical Exam General Appearance: well developed/nourished, mild distress Head: atraumatic Eyes: Bilateral: normal appearance. Ears: Left: discharge, swelling, tenderness. Nose: normal inspection Mouth/Throat: pharynx normal Neck: normal inspection Cardiovascular/Respiratory: no respiratory distress Back: normal inspection Neurologic/Psych: awake, alert, oriented x 3, normal mood/affect Skin: intact, normal color, warm/dry (FER PRICE) Progress Differential Diagnoses I considered the following diagnoses in my evaluation of the patient: Otitis media, otitis externa, perforation, cellulitis, mastoiditis, Plan of Care: Ear wick placed in left ear. Patient told to resume the Ciprodex drops. Patient started on oral antibiotics as well. Patient was told to follow-up with ear nose and throat doctor this week. Initial ED EKG: none (FER PRICE) Departure Departure Disposition: HOME OR SELF CARE Condition: Stable Clinical Impression Primary Impression: Otitis externa Referrals: COLETTE CLAROS MD (PCP/Family) ISAIAS MCKENZIE MD Additional Instructions: Take Augmentin and Vicodin as prescribed. Follow-up with ear nose and throat doctor provided on Monday of this week. Return if any other concerns worsening symptoms. Please go over all results of today's visit with your primary care doctor. Contact your primary care doctor to let them know you were here in the emergency room. There may be nonspecific findings which may not be related to your visit today here in the emergency room but may require further evaluation and chronic monitoring by your primary care doctor. If you had a laceration today the chance of foreign body always remains. You should follow-up with your primary care doctor for recheck in 3-5 days for a wound check. If you had an x-ray done there is a chance that a fracture could have been missed on initial read and you should follow-up with your primary care doctor for repeat x-rays if symptoms persist. If your blood pressure was elevated here in the emergency room please have rechecked by her primary care doctor within the next 48 hours by your primary care doctor. If you were prescribed a narcotic here in the emergency room or any type of controlled substances you're not allowed to drive while taking this medication or operate any type of heavy machinery. Narcotics can make you feel lightheaded dizziness nausea and can cause constipation. You may need to waste picker a stool softener. Thank you for choosing [facility] emergency room. Please return to the emergency room immediately if you have any other concerns worsening of symptoms. Departure Forms: Customer Survey General Discharge Information Prescriptions: Current Visit Scripts Amoxicillin/Potassium Clav (Augmentin 875-125 Tablet) 1 TAB PO BID #20 TAB Hydrocodone/Acetaminophen (Hydrocodon-Acetaminophen 5-325) 1-2 TAB PO Q4-6 PRN PRN PAIN #10 TAB (FER PRICE) PA/HOG RINGER Co-Sign Statement Statement: ED Attending supervision documentation- [] I saw and evaluated the patient. I have also reviewed all the pertinent lab results and diagnostic results. I agree with the findings and the plan of care as documented in the PA's/HOG RINGER's documentation. [X] I have reviewed the ED Record and agree with the PA's/HOG RINGER's documentation. [] Additions or exceptions (if any) to the PAs/HOG RINGER's note and plan are summarized below: [] (MOISES MARTINEZ,TOBI Abarca)
[2016-12-18] MEDS ORDERED: AUGMENTIN 875-1 EACH PO (17:49)
[2016-12-18] MEDS ORDERED: HYDROCODON-ACE1 EAC2 PO (17:49)
== END 2016-12-18 18:40 ==
LOC: ERH 16:12
DX: H60.92 Unspecified otitis externa, left ear (principal)

== ENCOUNTER 2016-12-21 08:59 | Emergency (ER) | payer OTHER ==
[~2016-12-21] VITALS: Ht 167.6 cm; Wt 95.3 kg
[~2016-12-21 08:59] MED LIST changes: +AUGMENTIN 875-1 EACH PO; +HYDROCODON-ACE1 EAC2 PO
[2016-12-21 09:02] VITALS: BP 125/85
--- NOTE | 2016-12-21 09:05 | ED EAR COMPLAINT ---
History of Present Illness General Chief Complaint: Ear Complaints Stated Complaint: L EAR PAIN Source: patient, old records Exam Limitations: no limitations Vital Signs & Intake/Output Vital Signs & Intake/Output Vital Signs Date Time Temp Pulse Resp B/P B/P Pulse O2 O2 Flow FiO2 Mean Ox Delivery Rate 12/21 0905 98 12/21 0902 96.9 86 18 125/85 99 Room Air Allergies Coded Allergies: No Known Allergies (12/18/16) Reconcile Medications Acetic Acid 2 % SOLUTION 4 GTT OTIC TID OTITIS Amoxicillin/Potassium Clav (Augmentin 875-125 Tablet) 875 MG-125 MG TABLET 1 TAB PO BID OTITIS MEDIA Hydrocodone/Acetaminophen (Hydrocodon-Acetaminophen 5-325) 5 MG-325 MG TABLET 1-2 TAB PO Q4-6 PRN PRN PAIN Levonorgestrel (Mirena) 20 MCG/24 HOUR (5 YEARS) IUD BC (Reported) Methylprednisolone. (Medrol) 4 MG TAB.DS.PK 1 DP PO AD SWELLING 6 on day 1 then reduce by one tablet daily until gone Triage Note: PT TO ED FOR L EAR PAIN, SEEN HERE TWICE ALREADY FOR SAME. STATING SHE IS FEELING BETTER "BUT JUST WANTED TO GET CHECKED" Triage Nurses Notes Reviewed? yes Onset: Gradual Duration: week(s): (1), constant Timing: recent history Injury Environment: home Severity: moderate Severity Numbers: 8 No Modifying Factors: none Associated Symptoms: DISCHARGE FROM L EAR : No Patient currently breastfeeds: No HPI: 36-year-old female with no medical history presents complaining of an ongoing one-week history of left ear infection. She was seen here 3 days ago was placed on Augmentin and had an ear wick placed. She states she's been taking the Vicodin which is helping the pain. No fever no chills. The wick fell out however states her ear continues to drain. No trauma no injury. She denies any rashes to her scalp or ear. No right ear symptoms no hearing loss no sore throat or the pain is radiating to her jaw no dental pain. She is not follow-up with the ear nose and throat physician as also recommended during her previous visit. No cough shortness of breath chest pain nausea or vomiting. (CAROL PATRICIO,MARCELO) Past History Travel History Traveled to [place] past 21 day No Medical History Any Pertinent Medical History? none Neurological: NONE EENT: NONE Cardiovascular: NONE Respiratory: NONE Gastrointestinal: NONE Hepatic: NONE Renal: NONE Musculoskeletal: NONE Psychiatric: NONE Endocrine: NONE Blood Disorders: NONE Cancer(s): NONE SECTIONIZER/Reproductive: NONE History of MRSA: No History of VRE: No History of CDIFF: No Surgical History Surgical History: cholecystectomy, Psychosocial History What is your primary language [place] Citizen Tobacco Use: Never used ETOH Use: occasional use Illicit Drug Use: denies illicit drug use Family History Hx Contributory? No (MARCELO KAY) Review of Systems Review of Systems Constitutional: Reports: see HPI. All Other Systems: Reviewed and Negative Comments Review of systems: See HPI, All other systems negative. Constitutional, no chills no fever, no malaise HEENT: No visual changes no sore throat no congestion, Cardiovascular: No chest pain , no palpitation Skin: no rashes, no change in skin Respiratory: No dyspnea no cough no sputum GI: No nausea no vomiting, no diarrhea Muscle skeletal: No joint pain, no back pain, no neck pain, Neurologic: no headache Psych: No stress Heme/endocrine: No bruising Immunology: No lymphadenopathy (MARCELO KAY) Physical Exam Physical Exam General Appearance: well developed/nourished, alert, awake Ears: Left: Tympanic normal, discharge. Comments: Well-developed well-nourished patient in no apparent distress. Head/Face: Atraumatic, no maxillary/frontal sinus tenderness, no facial swelling Eyes: PERRL, EOMI, no conjunctival injection. No nystagmus Ear:LEFT EAC DISCHARGE, NO PERFORATION, TM NORMAL, RIGTH External auditory canal and Tympanic membrane clear, no erythema, no FB. Nose: atraumatic.Normal inspectioN Throat: Moist mucous membranes.Pharynx normal. No pharyngeal erythema/exudate seen. No stridor/drooling or assymetry. No swelling or edema. Neck: Supple, no lymphadenopathy, FROM Back: FROM Cardiovascular: Regular rate and rhythms no murmurs Respiratory: No respiratory distress. Patient speaking in full complete sentences. Breath sounds clear to auscultation bilaterally: NO W/R/R Extremities: full range of motion Neuro: awake, alert, and oriented to person, place and time. There were no obvious focal neurologic abnormalities. Skin: Warm & dry;No appreciable rash on exposed skin Psych: Mood affect normal, normal memory normal judgment. (MARCELO KAY) Progress Differential Diagnoses I considered the following diagnoses in my evaluation of the patient OTITIS EXTERNA/MEDIA, MALIGNANT OTITIS, MASTOIDITIS, CELLULITIS, PERFORATION Plan of Care: Discussed with patient plan of care need for close follow-up with ENT today prescription for acetic acid Medrol Dosepak provided. Advised continue with the drops and pills I discussed with the patient at length all of their results. I had an extensive conversation regarding need for close follow up with their primary care physician this week as well as return precautions. I answered all of their questions, they feel comfortable with the plan and follow-up care. I discussed with the patient/family the medications that they will receive. I gave them signs and symptoms that could indicate an adverse reaction. I have advised them to limit their activities until they can see how they respond to the medication. Initial ED EKG: none (MARCELO KAY) Departure Departure Time of Disposition: 911 Disposition: HOME OR SELF CARE Condition: Stable Clinical Impression Primary Impression: Otitis externa Referrals: HARLAN MARTINEZ,COLETTE Dunham (PCP/Family) ISAIAS MCKENZIE MD Additional Instructions: CONTINUE USING THE ANTIBIOITIC DROPS AND PILLS DIRECTED. MEDROL DOSE IVANIA DISCUSSED. ACETIC ACID DROPS DISCUSSED. TYLENOL OR MOTRIN FOR PAIN. FOLLOW UP WITH EAR NOSE AND THROAT PHYSICIAN DR MCKENZIE'S OFFICE TODAY Departure Forms: Customer Survey General Discharge Information Prescriptions: Current Visit Scripts Methylprednisolone. (Medrol) 1 DP PO AD #1 DP 6 on day 1 then reduce by one tablet daily until gone Acetic Acid 4 GTT OTIC TID #1 BOT (MARCELO KAY) PA/RADIATION ONCOLOGIST Co-Sign Statement Statement: ED Attending supervision documentation- I saw and evaluated the patient. I have also reviewed all the pertinent lab results and diagnostic results. I agree with the findings and the plan of care as documented in the PA's/RADIATION ONCOLOGIST's documentation. x I have reviewed the ED Record and agree with the PA's/RADIATION ONCOLOGIST's documentation. [] Additions or exceptions (if any) to the PAs/RADIATION ONCOLOGIST's note and plan are summarized below: [] (RONI MARTINEZ,JAYME)
[2016-12-21] MEDS ORDERED: MEDROL4 M2 PO (09:15)
[2016-12-21] MEDS ORDERED: ACETIC ACID15 ML OTIC (09:15)
== END 2016-12-21 09:19 ==
LOC: ERH 08:59
DX: H60.92 Unspecified otitis externa, left ear (principal)

== ENCOUNTER 2018-03-13 04:42 | Emergency (ER) | payer OTHER ==
[~2018-03-13] VITALS: Ht 167.6 cm; Wt 95.3 kg
[~2018-03-13 04:42] MED LIST changes: +ACETIC ACID15 ML OTIC; +MEDROL4 M2 PO
[2018-03-13 04:57] VITALS: BP 153/77
--- NOTE | 2018-03-13 04:58 | ED EAR COMPLAINT ---
History of Present Illness General Chief Complaint: Ear Complaints Stated Complaint: ? LT EAR INFECTION PER PT Source: patient Exam Limitations: no limitations Vital Signs & Intake/Output Vital Signs & Intake/Output Vital Signs Date Time Temp Pulse Resp B/P B/P Pulse O2 O2 Flow FiO2 Mean Ox Delivery Rate 03/13 0457 99.4 88 20 153/77 98 Room Air Allergies Coded Allergies: No Known Allergies (12/18/16) Reconcile Medications Acetic Acid 2 % SOLUTION 4 GTT OTIC TID OTITIS Amoxicillin/Potassium Clav (Augmentin 875-125 Tablet) 875 MG-125 MG TABLET 1 TAB PO BID OTITIS MEDIA Amoxicillin/Potassium Clav (Augmentin 875-125 Tablet) 875 MG-125 MG TABLET 1 TAB PO BID ear infection Ciprofloxacin HCl/Dexameth (Ciprodex Otic Suspension) 0.3 %-0.1 % DROPS.SUSP 4 GTT OT TID ear infection x 10 days Hydrocodone/Acetaminophen (Hydrocodon-Acetaminophen 5-325) 5 MG-325 MG TABLET 1-2 TAB PO Q4-6 PRN PRN PAIN Levonorgestrel (Mirena) 20 MCG/24 HOUR (5 YEARS) IUD BC (Reported) Methylprednisolone. (Medrol) 4 MG TAB.DS.PK 1 DP PO AD SWELLING 6 on day 1 then reduce by one tablet daily until gone Triage Nurses Notes Reviewed? yes Onset: Abrupt Duration: day(s): Timing: recent history Injury Environment: home Severity: mild, moderate Modifying Factors: Improves With: rest. Worsens With: movement. Associated Symptoms: left ear pain HPI: 37 yo woman presents with left ear inflammation and pain. "I get these from time to time... I usually need some drops." She has no trouble hearing. No ear drainage, fever, sore throat. She has not been swimming. She is otherwise well. Past History Medical History Any Pertinent Medical History? 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 No Review of Systems Review of Systems Constitutional: Reports: no symptoms. EENTM: Reports: no symptoms. Respiratory: Reports: no symptoms. Cardiovascular: Reports: no symptoms. GI: Reports: no symptoms. Genitourinary: Reports: no symptoms. Musculoskeletal: Reports: no symptoms. Skin: Reports: no symptoms. Neurological/Psychological: Reports: no symptoms. Hematologic/Endocrine: Reports: no symptoms. Immunologic/Allergic: Reports: no symptoms. All Other Systems: Reviewed and Negative Physical Exam Physical Exam General Appearance: well developed/nourished, mild distress Head: atraumatic Eyes: Bilateral: normal appearance. Ears: Left: swelling, Tympanic dull, other (L ear canal inflammed). Right: canal normal, Tympanic normal. Nose: normal inspection Mouth/Throat: normal mouth inspection, pharynx normal Neck: normal inspection, supple Back: normal inspection Neurologic/Psych: no motor/sensory deficits, awake, alert Skin: intact, normal color, warm/dry Progress Differential Diagnoses I considered the following diagnoses in my evaluation of the patient: otitis media vs externa Plan of Care: pt give rx for augmentin and ciprodex... close follow up advised. Initial ED EKG: none Departure Departure Disposition: HOME OR SELF CARE Condition: Stable Clinical Impression Primary Impression: Otitis media Secondary Impressions: Otitis externa Referrals: Baljinder Gale MD (PCP/Family) Departure Forms: Customer Survey General Discharge Information Prescriptions: Current Visit Scripts Amoxicillin/Potassium Clav (Augmentin 875-125 Tablet) 1 TAB PO BID #20 TAB Ciprofloxacin HCl/Dexameth (Ciprodex Otic Suspension) 4 GTT OT TID #1 BOT Ref 1 x 10 days
[2018-03-13] MEDS ORDERED: CIPRODEX OTIC7.5 ML OT (04:59)
[2018-03-13] MEDS ORDERED: AUGMENTIN 875-1 EACH PO (04:59)
[2018-03-16] MEDS ORDERED: PERCOCET 5-3251 EACH PO (01:02)
[2018-03-16] MEDS ORDERED: AUGMENTIN 875-1 EACH PO (01:02)
[2018-03-16] MEDS ORDERED: CEFUROXIME500 MG PO (01:04)
== END 2018-03-13 05:04 ==
LOC: ERH 04:42
DX: H66.92 Otitis media, unspecified, left ear (principal); H92.02 Otalgia, left ear; H60.92 Unspecified otitis externa, left ear